=== PATIENT | male | born 2000 | race Caucasian/White ===

== ENCOUNTER 2023-06-26 19:45 | Emergency (ER) | payer BC ==
[~2023-06-26] VITALS: Ht 182.9 cm; Wt 75.0 kg
[2023-06-26] MEDS ORDERED: TYLENOL500 MG PO (19:54)
[2023-06-26] MEDS ORDERED: ULTRAM50 MG PO (20:01)
[2023-06-26] MEDS ORDERED: AMOXICILLIN500 MG PO (20:01)
[2023-06-26 20:09] VITALS: BP 116/69
== END 2023-06-26 20:16 | disposition home or self-care (01) | DRG 159 ==
LOC: ED 19:45
DX: K04.7 Periapical abscess without sinus (principal); S02.5XXA Fracture of tooth (traumatic), initial encounter for closed fracture; X58.XXXA Exposure to other specified factors, initial encounter

== ENCOUNTER 2023-06-27 22:49 | Emergency (ER) | payer BC ==
[~2023-06-27] VITALS: Ht 182.9 cm; Wt 75.0 kg
[~2023-06-27 22:49] MED LIST: AMOXICILLIN500 MG PO; TYLENOL500 MG PO; ULTRAM50 MG PO
[2023-06-28 00:03] VITALS: BP 120/77
== END 2023-06-28 00:03 | disposition home or self-care (01) | DRG 159 ==
LOC: ED 22:49
DX: K04.7 Periapical abscess without sinus (principal)

== ENCOUNTER 2024-07-12 20:48 | Emergency (ER) | payer BC ==
[~2024-07-12] VITALS: Ht 182.9 cm; Wt 74.0 kg
[2024-07-12] MEDS ORDERED: SILVER SULFADIAZINE 50 GM/TUBE EA TOP ONE (21:25)
[2024-07-12] MEDS ORDERED: SILVADENE1 % EX (21:46)
[2024-07-12 22:16] VITALS: BP 120/69
== END 2024-07-12 22:16 | disposition home or self-care (01) | DRG 935 ==
LOC: ED 20:48
PROC: 2W21X4Z Dressing of Face using Bandage (ICD-10-PCS; principal; 2024-07-12)
PROC: 2W29X4Z Dressing of Left Upper Extremity using Bandage (ICD-10-PCS; 2024-07-12)
PROC: 2W2EX4Z Dressing of Right Hand using Bandage (ICD-10-PCS; 2024-07-12)
DX: T20.16XA Burn of first degree of forehead and cheek, initial encounter (principal); T23.161A Burn of first degree of back of right hand, initial encounter; T22.132A Burn of first degree of left upper arm, initial encounter; T22.112A Burn of first degree of left forearm, initial encounter; T31.0 Burns involving less than 10% of body surface; X04.XXXA Exposure to ignition of highly flammable material, initial encounter; Y93.89 Activity, other specified; Y92.009 Unspecified place in unspecified non-institutional (private) residence as the place of occurrence of the external cause